=== PATIENT | male | born 1950 | race Caucasian/White ===

== ENCOUNTER 2018-01-28 23:11 | Emergency (ER) | payer MEDICARE, OTHER ==
[~2018-01-28] VITALS: Ht 188 cm; Wt 110.0 kg
[2018-01-29] MEDS ORDERED: HYDROcodone/acetaminophen 10/325mg tab PO ONE
[2018-01-29] MEDS ORDERED: ketorolac trometh inj. 60 MG/2 ML VIAL IM ONE
[2018-01-29] MEDS ORDERED: DICL25TA12 PO (00:01)
[2018-01-29] MEDS ORDERED: ketorolac trometh. 30mg/ml inj. IM ONE (00:47)
[2018-01-29 01:00] VITALS: BP 131/79
== END 2018-01-29 01:01 | disposition home or self-care (01) ==
LOC: ER 23:12
DX: M70.22 Olecranon bursitis, left elbow (principal); M25.532 Pain in left wrist; Z79.899 Other long term (current) drug therapy; Y93.89 Activity, other specified
CPT/HCPCS: 96372; 99283; J1885